=== PATIENT | female | born 1975 ===

== ENCOUNTER → 2017-04-10 | Outpatient (REF) | LOC: WSOH 11:00 | DX: Z02.89 Encounter for other administrative examinations (principal) ==

== ENCOUNTER → 2017-04-10 | Outpatient (REF) | LOC: WSOH 08:30 | DX: Z02.89 Encounter for other administrative examinations (principal) ==

== ENCOUNTER → 2017-06-14 | Outpatient (REF) | LOC: WSOH 16:45 | DX: Z02.89 Encounter for other administrative examinations (principal) ==